=== PATIENT | female | born 1960 | race Caucasian/White ===

== ENCOUNTER 2018-04-06 19:17 | Emergency (ER) | payer OTHER ==
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
[2018-04-06] MEDS ORDERED: IBUPROFEN 600 MG TAB PO ONE (19:59)
--- NOTE | 2018-04-06 20:02 | CPEKG ---
Heart Rate: 80 RR Interval: 750 P-R Interval: 184 QRSD Interval: 90 QT Interval: 388 QTC Interval: 448 P Mather: 62 QRS Mather: 17 T Wave Mather: 6 EKG Severity - NORMAL ECG - EKG Impression: SINUS RHYTHM Electronically Signed By: Mikey Rawls 06-Apr-2018 20:51:03
[2018-04-06 20:42] VITALS: BP 134/101
== END 2018-04-06 20:36 | disposition home or self-care (01) ==
LOC: EDUNIT#
DX: S20.219A Contusion of unspecified front wall of thorax, initial encounter (principal); V49.40XA Driver injured in collision with unspecified motor vehicles in traffic accident, initial encounter; Y92.410 Unspecified street and highway as the place of occurrence of the external cause; Y99.8 Other external cause status; Y93.89 Activity, other specified